=== PATIENT | female | born 1970 | race Two or more races ===

== ENCOUNTER 2019-11-20 06:25 | Emergency (ER) | payer MEDICAID, OTHER ==
[~2019-11-20] VITALS: Ht 157.5 cm; Wt 61.2 kg
[2019-11-20 06:29] VITALS: BP 162/87
--- NOTE | 2019-11-20 06:35 | NUR ---
PT AMBULATED TO RESTROOM TO PROVIDE UA.
--- NOTE | 2019-11-20 06:36 | NUR ---
PT AMBULATED TO ER BED 04
--- NOTE | 2019-11-20 06:38 | NUR ---
49 Y/O FEMALE PRESENTED TO ED C/O ABDOMINAL PAIN X 3 DAYS . PT STATES SHE ATE SOMETHING FUNNY ON FRIDAY AND HAS HAD ABDOMINAL PAIN SINCE THEN. PT STATES SHE HAS BEEN HAVING NAUSEA AND VOMITTING SINCE FRIDAY. PT DENIES FEVER, DIARRHEA, BODY ACHES, CHEST PAIN. PT SECONDARY C/O OF RIGHT FLANK PAIN AND DYSURIA X 1 DAY , HURTS WHEN SHE MOVES AND IS TENDER TO TOUCH. PT NORMOACTIVE BOWEL SOUNDS. ABD FLAT, SOFT AND NONTENDER. A/O X4. RR EVEN AND UNLABORED. PT RESTING IN BED, LOCKED AND IN LOWEST POSITION ,HOB ELEVATED, SIDE RAIL X1. VSS. PMH: C SECTION NKA
--- NOTE | 2019-11-20 06:38 | NUR ---
ERMD AT BEDSIDE FOR EVALUATION.
--- NOTE | 2019-11-20 07:12 | NUR ---
REPORT GIVEN TO JAYLA JACKSON FOR TRANSFER OF CARE.
--- NOTE | 2019-11-20 07:22 | NUR ---
Pt report received from JAYLA Rivera. Transfer of care at this time.
[2019-11-20 07:31] LABS: BASOPHILS # (AUTO) 0.1 K/uL (0.00-0.22); BASOPHILS % (AUTO) 0.6 % (0.0-2.0); EOSINOPHILS # (AUTO) 0.1 K/uL (0-0.4); EOSINOPHILS % (AUTO) 0.7 % (0.0-4.0); HEMOGLOBIN 12.7 g/dL (12.0-16.0); LYMPHOCYTES # (AUTO) 1.8 K/uL (2.5-16.5); LYMPHOCYTES % (AUTO) 13.9 % (20.5-51.1); MEAN CORPUSCULAR HEMOGLOBIN 26 pg (27-31); MEAN CORPUSCULAR HGB CONC 32 g/dL (33-37); MEAN CORPUSCULAR VOLUME 80.8 fL (80-94); MONOCYTES # (AUTO) 0.8 K/uL (0.8-1.0); MONOCYTES % (AUTO) 6.3 % (1.7-9.3); NEUTROPHILS % (AUTO) 78.5 % (42.2-75.2); PLATELET COUNT (AUTO) 312 K/uL (140-450); RED BLOOD CELL COUNT(AUTO) 4.95 MIL/uL (4.20-5.40); RED CELL DISTRIBUTION WIDTH 14.9 % (11.6-13.7); WHITE BLOOD COUNT (AUTO) 12.7 K/uL (4.8-10.8)
[2019-11-20 07:48] LABS: ALBUMIN 4.3 g/dL (3.4-5.0); ANION GAP 15.1 (8-16); CARBON DIOXIDE 25.7 mmol/L (21-32); POTASSIUM 3.8 mmol/L (3.5-5.1); TOTAL BILIRUBIN 0.4 mg/dL (0.0-1.0)
[2019-11-20] MEDS ORDERED: LACTULOSE 20 GM/30 ML UDC PO ONE (08:00)
--- NOTE | 2019-11-20 08:20 | NUR ---
PT AMBULATED TO BATHROOM WITH STEADY GAIT.
[2019-11-20] MEDS ORDERED: MORPHINE SULFATE 4 MG/ML SYR IVP ONE ×2 (08:50→10:35)
[2019-11-20] MEDS ORDERED: NACL 0.9% 1,000 ML IV ONE (08:50)
--- NOTE | 2019-11-20 09:30 | NUR ---
PT IS RESTING IN THE BED WITH EYES OPENED.
--- NOTE | 2019-11-20 10:20 | NUR ---
DR. MAS IS TALKING TO PT'S VIA THE PHONE AT BEDSIDE.
--- NOTE | 2019-11-20 10:40 | NUR ---
PT AMBULATED TO BATHROOM WITH STEADY GAIT.
[2019-11-20] MEDS ORDERED: TAMSULOSIN 0.4 MG CAP PO ONE (11:10)
[2019-11-20] MEDS ORDERED: CIPROFLOXACIN 250 MG TAB PO ONE (11:10)
[2019-11-20] MEDS ORDERED: KETOROLAC 30 MG/ML VIAL IVP ONE (11:15)
[2019-11-20 11:53] VITALS: BP 134/75
--- NOTE | 2019-11-20 11:53 | NUR ---
Patient discharged with v/s stable. Written and verbal after care instructions given and explained. Patient alert, oriented and verbalized understanding of instructions. Sha assisted to lobby. All questions addressed prior to discharge. ID band removed. Patient advised to follow up with urologist. Rx of Flomax, Cipro, and Ibuprofen given. Patient educated on indication of medication including possible reaction and side effects. Opportunity to ask questions provided and answered.
--- NOTE | 2019-11-20 11:53 | NUR ---
Note undrose in EDM - 11/20/19 at 1156 by MED Patient discharged with v/s stable. Written and verbal after care instructions given and explained. Patient alert, oriented and verbalized understanding of instructions. Ambulatory with steady gait. All questions addressed prior to discharge. ID band removed. Patient advised to follow up with urologist. Rx of Flomax, Cipro, and Ibuprofen given. Patient educated on indication of medication including possible reaction and side effects. Opportunity to ask questions provided and answered.
[2019-11-20 12:48] LABS: APPEARANCE,URINE CLEAR (CLEAR); BILIRUBIN,URINE NEGATIVE (NEGATIVE); BLOOD, URINE 1+ (NEGATIVE); COLOR,URINE YELLOW (YELLOW); LEUKOCYTE ESTERASE ,URINE NEGATIVE (NEGATIVE); NITRITE, URINE NEGATIVE (NEGATIVE); UGLUCOSE NEGATIVE (NEGATIVE)
[2019-11-20 13:02] LABS: RBC,URINE NONE SEEN /HPF (0-5); WBC,URINE NONE SEEN /HPF (0-5)
== END 2019-11-20 11:53 | disposition home or self-care (01) ==
LOC: MED 06:25
DX: N13.1 Hydronephrosis with ureteral stricture, not elsewhere classified (principal); R11.10 Vomiting, unspecified
CPT/HCPCS: 36415; 74176; 80053; 81001; 81025; 85025; 96374; 96375; 96376; 99284; J1885; J2270; J7030